=== PATIENT | female | born 1990 | race Caucasian/White ===

== ENCOUNTER 2021-06-12 12:46 | Emergency (ER) | payer OTHER ==
[~2021-06-12] VITALS: Ht 180.3 cm; Wt 81.0 kg
--- NOTE | 2021-06-12 13:37 | PHYS DOC ---
Past History Past Medical History: No Pertinent History (NEILLARRY Tejal STAFF WEAPONS OFFICER) Past Surgical History: Other Additional Past Surgical Histo: D&C (NEILLARRY Tejal STAFF WEAPONS OFFICER) Smoking: Non-smoker Alcohol Use: None Drug Use: None (LARRY TREJO Tejal STAFF WEAPONS OFFICER) Adult General Chief Complaint Chief Complaint: VAGINAL BLEEDING [facility] Patient is a female 5 para 3 with 1 miscarriage currently 12 weeks presenting to the ED today with vaginal bleeding in that began this morning. Patient denies any abdominal pain. Denies any nausea vomiting. She states she has been following up with a mid level net developer. She states she has an appointment in 2 days. (LARRY TREJO Tejal STAFF WEAPONS OFFICER) Review of Systems Review of Systems Constitutional: Denies fever or chills [] Eyes: Denies change in visual acuity, redness, or eye pain [] HENT: Denies nasal congestion or sore throat [] Respiratory: Denies cough or shortness of breath [] Cardiovascular: No additional information not addressed in [facility] [] GI: Reports vaginal bleeding in . Denies abdominal pain, nausea, vomiting, bloody stools or diarrhea [] : Denies dysuria or hematuria [] Musculoskeletal: Denies back pain or joint pain [] Integument: Denies rash or skin lesions [] Neurologic: Denies headache, focal weakness or sensory changes [] All other systems were reviewed and found to be within normal limits, except as documented in this note. (LARRY TREJO Tejal STAFF WEAPONS OFFICER) Allergies Allergies Allergies Coded Allergies Type Severity Reaction Last Updated Verified No Known Drug Allergies 12/25/13 No (NEILLARRY Tejal STAFF WEAPONS OFFICER) Physical Exam Physical Exam Constitutional: Well developed, well nourished, no acute distress, non-toxic appearance. [] HENT: Normocephalic, atraumatic, bilateral external ears normal, oropharynx moist, no oral exudates, nose normal. [] Eyes: PERRLA, EOMI, conjunctiva normal, no discharge. [] Neck: Normal range of motion, no tenderness, supple, no stridor. [] Cardiovascular:Heart rate regular rhythm, no murmur [] Lungs & Thorax: Bilateral breath sounds clear to auscultation [] Abdomen: Bowel sounds normal, soft, no tenderness, no masses, no pulsatile masses. [] Pelvic exam External pelvic is normal, cervix not visualized due to blood in the vaginal vault. Blood work removed, more blood noted no CMT tenderness Skin: Warm, dry, no erythema, no rash. [] Back: No tenderness, no CVA tenderness. [] Extremities: No tenderness, no cyanosis, no clubbing, ROM intact, no edema. [] Neurologic: Alert and oriented X 3, normal motor function, normal sensory function, no focal deficits noted. [] Psychologic: Affect normal, judgement normal, mood normal. [] (LARRY TREJO APRN) Current Patient Data Vital Signs Vital Signs Date Time Temp Pulse Resp B/P (MAP) Pulse Ox O2 Delivery O2 Flow Rate FiO2 06/12/21 13:07 97.9 64 16 124/63 100 Room Air Lab Results Laboratory Tests Test 06/12/21 13:32 POC Urine HCG, Qualitative hcg positive (Negative) (LARRY TREJO APRN) EKG EKG [] (LARRY TREJO APRN) Radiology/Procedures Radiology/Procedures []PROCEDURE: OB <14 WKS EXAM: Obstetrics sonogram. HISTORY: Vaginal bleeding. TECHNIQUE: Sonographic imaging of a gravid uterus was performed. COMPARISON: None. FINDINGS: The uterus measures 15.9 x 10.1 x 9.6 cm. The cervix is closed and measures 3.5 cm in length. There is a single intrauterine gestational sac with pole. The crown-rump length is 6.5 cm, corresponding with a gestational age of 12 weeks and 6 days and due date of 12/19/2021. The heart rate is 168 bpm. There is a subchorionic hematoma along the inferior gestational sac measuring 7.4 x 5.1 x 1.0 cm. The gestational sac is normal in location and configuration. The maternal ovaries are unremarkable. IMPRESSION: 1. Single intrauterine fetus with normal heart rate and gestational age patient also measurements of 12 weeks and 6 days. 2. Subchronic hematoma along the inferior aspect of the gestational sac measuring 7.4 cm in maximum dimension. Close clinical follow-up is recommended given the size of this hematoma. Electronically signed by: Latrice Arechiga MD (06/12/2021 2:08 PM) [id number] DICTATED AND SIGNED BY: LATRICE ARECHIGA MD DATE: 06/12/21 1406 CC: EMERGENCY,DEPARTMENT; LARRY TREJO APRN; PCP,NO ~MTH0 0 (LARRY TREJO APRN) Heart Score C/O Chest Pain: N/A Risk Factors: Risk Factors: DM, Current or recent (<one month) smoker, HTN, HLP, family history of CAD, obesity. Risk Scores: Risk Factors: DM, Current or recent (<one month) smoker, HTN, HLP, family history of CAD, obesity. (LARRY TREJO APRN) Course & Med Decision Making Course & Med Decision Making Pertinent Labs and Imaging studies reviewed. (See chart for details) This is a 30-year-old female patient 12 weeks presenting to the ED today with vaginal bleeding in that began today. Patient states she is O- and her is O- and states she normally does not get RhoGam Labs are negative for any acute findings including negative UA. Vitals are stable. OB ultrasound noted for an IUP, 12 weeks 6 days with a heart rate of 168. Patient was also noted for subchorionic hematoma. Recommended following up with the COLLECTIONS PROFESSIONAL. She states she has an appointment on this week which is 2 days. Pelvic precautions recommended including bedrest, no strenuous activities, no intercourse until seen by OB. Provided return precautions (LARRY TREJO APRN) Dragon Disclaimer Dragon Disclaimer This electronic medical record was generated, in whole or in part, using a voice recognition dictation system. (LARRY TREJO APRN) Departure Departure: Impression: Primary Impression: Subchorionic hematoma Disposition: HOME / SELF CARE / HOMELESS Condition: STABLE Referrals: PCP,NO (PCP) follow up with your color matcher on Patient Instructions: Subchorionic Hematoma Additional Instructions: You were evaluated in the emergency room and noted to have supple, subchorionic hematoma please do not do any strenuous activities, maintain bedrest until seen by the COLLECTIONS PROFESSIONAL on . Do not have any intercourse. Do not exercise. Come back to the ED at any point symptoms worsen. Attending Signature Attending Signature I have reviewed the PA/BIOLOGICAL SCIENCES PROFESSOR's note and plan of care. I was available for consultation as needed during the patient's visit in the emergency department. I agree with the clinical impression, plan, and disposition. (GAINES,CARYL R DO) Problem Qualifiers Primary Impression: Subchorionic hematoma Fetus number: fetus 1 of multiple gestation Trimester: second trimester Qualified Codes: O41.8X21 - Other specified disorders of amniotic fluid and membranes, second trimester, fetus 1; O46.8X2 - Other antepartum hemorrhage, second trimester LARRY TREJO APRN Jun 12, 2021 13:37 CARYL GAINES DO Jun 12, 2021 20:19
[2021-06-12 14:05] LABS: BILIRUBIN,URINE NEG (NEG); CLARITY,URINE HAZY; COLOR,URINE YELLOW; GLUCOSE,URINE NEG (NEG)
[2021-06-12 14:06] LABS: BACTERIA,URINE 0 /HPF (0-FEW); NITRITE,URINE NEG (NEG); UROBILINOGEN,URINE 0.2 mg/dL (0.2 mg/dL); WBC,URINE 0 /HPF (0-4)
[2021-06-12 14:08] LABS: BASO % 1 % (0-3); EOS # 0.1 x10^3/uL (0.0-0.7); EOS % 1 % (0-3); HEMATOCRIT 40.3 % (36.0-47.0); HEMOGLOBIN 13.5 g/dL (12.0-15.5); LYMPH # 1.3 x10^3/uL (1.0-4.8); LYMPH % 19 % (24-48); MEAN CORPUSCULAR HEMOGLOBIN 29 pg (25-35); MEAN CORPUSCULAR HGB CONC 33 g/dL (31-37); MEAN CORPUSCULAR VOLUME 86 fL (79-100); MONO # 0.5 x10^3/uL (0.0-1.1); MONO % 8 % (0-9); NEUT # 4.8 x10^3uL (1.8-7.7); NEUT % 71 % (31-73); PLATELET COUNT 151 x10^3/uL (140-400); RED CELL DISTRIBUTION WIDTH 14.4 % (11.5-14.5); WHITE BLOOD COUNT 6.7 x10^3/uL (4.0-11.0)
--- NOTE | 2021-06-12 14:10 | RAD ---
EXAM: Obstetrics sonogram. HISTORY: Vaginal bleeding. TECHNIQUE: Sonographic imaging of a gravid uterus was performed. COMPARISON: None. FINDINGS: The uterus measures 15.9 x 10.1 x 9.6 cm. The cervix is closed and measures 3.5 cm in lengt h. There is a single intrauterine gestational sac with pole. The crown-rump length is 6.5 cm, corresponding with a gestational age of 12 weeks and 6 days and due date of 12/19/2021. The heart rate is 168 bpm. There is a subchorionic hematoma along the inferior gestational sac measuring 7.4 x 5.1 x 1.0 cm. The gestational sac is normal in location and configuration. The maternal ovarie s are unremarkable. IMPRESSION: 1. Single intrauterine fetus with normal heart rate and gestational age patient also measurements of 12 weeks and 6 days. 2. Subchronic hematoma along the inferior aspect of the gestational sac measuring 7.4 cm in maximum d imension. Close clinical follow-up is recommended given the size of this hematoma. Electronically signed by: Latrice Arechiga MD (06/12/2021 2:08 PM) [id number]
[2021-06-12 14:13] LABS: CALCIUM 8.1 mg/dL (8.5-10.1); CREATININE 0.6 mg/dL (0.6-1.0); GFR 116.6; POTASSIUM 3.6 mmol/L (3.5-5.1)
[2021-06-12 14:16] LABS: ALBUMIN 3.4 g/dL (3.4-5.0); ALBUMIN/GLOBULIN RATIO 1.1 (1.0-1.7); TOTAL BILIRUBIN 0.4 mg/dL (0.2-1.0); TOTAL PROTEIN 6.4 g/dL (6.4-8.2)
[2021-06-12 15:50] VITALS: BP 113/58
== END 2021-06-12 15:55 | disposition home or self-care (01) ==
LOC: ER 12:46
DX: O20.8 Other hemorrhage in early pregnancy (principal); Z3A.12 12 weeks gestation of pregnancy
CPT/HCPCS: 76801; 80053; 81001; 81025; 84702; 85025; 99284